=== PATIENT | female | born 1960 | race Native Hawaiian/Other Pacific Islander ===

== ENCOUNTER → 2017-04-04 | Outpatient (CLI) | payer OTHER | LOC: FIMAGING 09:02 | PROVIDERS: ATTEND Internal Medicine | DX: R79.89 Other specified abnormal findings of blood chemistry (principal) ==

== ENCOUNTER 2017-04-11 20:12 | Emergency (ER) | payer OTHER ==
[2017-04-11 20:25] VITALS: RESP 16; TEMP 97.9
--- NOTE | 2017-04-11 20:38 | EDPHY ---
H & P Time Seen by Provider: 04/11/17 20:35 HPI/ROS: CHIEF COMPLAINT: Nausea and vomiting HISTORY OF PRESENT ILLNESS: 56-year-old woman with a previous history of hysterectomy and diabetes presents with nausea and vomiting and diarrhea today. She started having nausea 2 weeks ago at that time she had a head cold and thought it was related to that. She has continued to have intermittent nausea over the last 2 weeks ago on April 04 had ultrasound showed no gallstones but also had labs that showed elevated liver function tests. Today she presents with nausea starting at 9:00 a.m. feeling weak and shaky. She had 3 tootsie rolls but that did not help. She at 5:00 p.m. started having worsening nausea vomiting with epistaxis in 2 episodes of diarrhea and presents to the ER. Not associated with abdominal pain. Symptoms severe. Worse if she tries to eat or drink. REVIEW OF SYSTEMS: Eye: no change in vision ENT: no sore throat Cardiac: no chest pain or syncope Pulmonary: no cough or SOB Abdomen: HPI Musculoskeletal: no back pain Skin: no rash Neuro: no headache Constitutional: no fever : Had dysuria and urinary frequency 2 days ago but it went away with cranberry juice. A comprehensive 10 point review of systems is otherwise negative aside from elements mentioned in the history of present illness. PAST MEDICAL HISTORY: Diabetes, hysterectomy, acid reflux, depression Social history: No alcohol, nonsmoker General Appearance: Alert and conversant, cooperative. Eyes: No scleral icterus. ENT, Mouth: Dry mucous membranes Respiratory: Normal respiratory effort, breath sounds equal, lungs are clear to auscultation. Cardiovascular: Regular rate and rhythm. Gastrointestinal: Abdomen is soft and non tender. Negative for Jernigan sign or right upper quadrant tenderness. Neurological: Alert, normally conversant, normal movement and sensory in extremities. Skin: Warm and dry, no rashes. Musculoskeletal: No peripheral edema. Psychiatric: Not agitated. Emergency Department course/MDM: Plan for EKG and troponin. Zofran 4 mg IV and normal saline 1 L for nausea and vomiting. Chemistries to include liver function tests and lipase as well as venous blood gas. 2158: exam with patient. She feels better, able to tolerate p.o.. Labs reviewed and her LFTs are still slightly elevated but down from previous. The plan is to discharge with oral metoclopramide, referral as an outpatient for possible HIDA scan. Gallbladder dysfunction and gastric paresis both considered as part of differential diagnosis. At this point I think ACS or pancreatitis or surgical abdominal process unlikely. 2226: UA positive for infection, will treat with keflex and send culture. Limited amount of Zofran and no Reglan because of potential for interaction with Wellbutrin. She states she is comfortable going home cough feels a lot better. Smoking Status: Former smoker Constitutional: Initial Vital Signs Temperature (C) 36.6 C 04/11/17 20:21 Heart Rate 91 04/11/17 20:21 Respiratory Rate 16 04/11/17 20:21 Blood Pressure 170/99 H 04/11/17 20:21 O2 Sat (%) 98 04/11/17 20:21 O2 Delivery Mode Room Air Allergies/Adverse Reactions: No Known Allergies Allergy (Verified 04/11/17 20:25) Home Medications: Medication Instructions Recorded GLIPIZIDE [GLIPIZIDE XL] 09/15/13 Meclizine HCl [Meclizine HCl 25 mg 25 mg PO QID PRN #12 tab 09/15/13 (RX,OTC)] Metformin HCl [Metformin 1000 mg] 09/15/13 Cephalexin [Keflex] 500 mg PO QID #28 cap 04/11/17 Victoza 3-Dong 04/11/17 Wellbutrin Xl 04/11/17 Medical Decision Making - Diagnostics EKG Interpretation: 12-lead EKG interpreted by me; official reading is in trace master. My interpretation is sinus rhythm rate 87 with nonspecific anterior lateral T-wave flattening Differential Diagnosis: Differential for nausea considered including but not limited to acute coronary syndrome, gastric paresis, DKA, other metabolic abnormality, UTI. - Data Points Laboratory Results: Laboratory Results 04/11/17 20:56 04/11/17 20:56 04/11/17 04/11/17 04/11/17 21:59 20:56 20:56 WBC 10.76 10^3/uL H 10^3/uL (3.80-9.50) RBC 4.90 10^6/uL 10^6/uL (4.18-5.33) Hgb 16.0 g/dL g/dL (12.6-16.3) POC Hgb Hct 45.1 % % (38.0-47.0) POC Hct MCV 92.0 fL fL (81.5-99.8) MCH 32.7 pg pg (27.9-34.1) MCHC 35.5 g/dL g/dL (32.4-36.7) RDW 12.0 % % (11.5-15.2) Plt Count 242 10^3/uL 10^3/uL (150-400) MPV 10.0 fL fL (8.7-11.7) Neut % (Auto) 70.2 % % (39.3-74.2) Lymph % (Auto) 23.4 % % (15.0-45.0) [place] % (Auto) 5.2 % % (4.5-13.0) Eos % (Auto) 0.6 % % (0.6-7.6) Baso % (Auto) 0.3 % % (0.3-1.7) Nucleat RBC Rel Count 0.0 % % (0.0-0.2) Absolute Neuts (auto) 7.56 10^3/uL H 10^3/uL (1.70-6.50) Absolute Lymphs (auto) 2.52 10^3/uL 10^3/uL (1.00-3.00) Absolute Monos (auto) 0.56 10^3/uL 10^3/uL (0.30-0.80) Absolute Eos (auto) 0.06 10^3/uL 10^3/uL (0.03-0.40) Absolute Basos (auto) 0.03 10^3/uL 10^3/uL (0.02-0.10) Absolute Nucleated RBC 0.00 10^3/uL 10^3/uL (0-0.01) Immature Gran % 0.3 % % (0.0-1.1) Immature Gran # 0.03 10^3/uL 10^3/uL (0.00-0.10) VBG pH POC Sodium Sodium 137 mEq/L mEq/L (134-144) POC Potassium Potassium 4.3 mEq/L mEq/L (3.5-5.2) POC Chloride Chloride 100 mEq/L mEq/L (97-110) Carbon Dioxide 19 mEq/l L mEq/l (22-31) Anion Gap 18 mEq/L H mEq/L (8-16) POC BUN BUN 12 mg/dL mg/dL (7-23) Creatinine 0.6 mg/dL mg/dL (0.6-1.0) POC Creatinine Estimated GFR > 60 Glucose 168 mg/dL H mg/dL (70-100) POC Glucose Calcium 10.4 mg/dL mg/dL (8.5-10.4) Total Bilirubin 0.8 mg/dL mg/dL (0.1-1.4) Conjugated Bilirubin 0.4 mg/dL mg/dL (0.0-0.5) Unconjugated Bilirubin 0.4 mg/dL mg/dL (0.0-1.1) AST 96 IU/L H IU/L (14-46) ALT 186 IU/L H IU/L (9-52) Alkaline Phosphatase 108 IU/L IU/L (38-126) Troponin I < 0.012 ng/mL ng/mL (0.000-0.034) Total Protein 7.7 g/dL g/dL (6.3-8.2) Albumin 4.5 g/dL g/dL (3.5-5.0) Lipase 213 IU/L IU/L (23-300) Urine Color YELLOW Urine Appearance HAZY Urine pH 5.0 (5.0-7.5) Ur Specific [place] 1.010 (1.002-1.030) Urine Protein 2+ H (NEGATIVE) Urine Ketones TRACE H (NEGATIVE) Urine Blood 1+ H (NEGATIVE) Urine Nitrate POSITIVE H (NEGATIVE) Urine Bilirubin NEGATIVE (NEGATIVE) Urine Urobilinogen NEGATIVE EU EU (0.2-1.0) Ur Leukocyte Esterase TRACE H (NEGATIVE) Urine RBC 5-10 /hpf H /hpf (0-3) Urine WBC 15-25 /hpf H /hpf (0-3) Ur Epithelial Cells TRACE /lpf /lpf (NONE-1+) Urine Bacteria 3+ /hpf H /hpf (NONE SEEN) Urine Mucus TRACE /lpf /lpf (NONE-1+) Urine Glucose 1+ H (NEGATIVE) 04/11/17 04/11/17 20:53 20:47 WBC RBC Hgb POC Hgb 16.7 gm/dL H gm/dL (12.6-16.3) Hct POC Hct 49 % H % (38-47) MCV MCH MCHC RDW Plt Count MPV Neut % (Auto) Lymph % (Auto) [place] % (Auto) Eos % (Auto) Baso % (Auto) Nucleat RBC Rel Count Absolute Neuts (auto) Absolute Lymphs (auto) Absolute Monos (auto) Absolute Eos (auto) Absolute Basos (auto) Absolute Nucleated RBC Immature Gran % Immature Gran # VBG pH 7.39 (7.31-7.42) POC Sodium 139 mEq/L mEq/L (134-144) Sodium POC Potassium 3.8 mEq/L mEq/L (3.3-5.0) Potassium POC Chloride 103 mEq/L mEq/L (97-110) Chloride Carbon Dioxide Anion Gap POC BUN 12 mg/dL mg/dL (7-23) BUN Creatinine POC Creatinine 0.5 mg/dL L mg/dL (0.6-1.0) Estimated GFR Glucose POC Glucose 170 mg/dL H mg/dL (70-100) Calcium Total Bilirubin Conjugated Bilirubin Unconjugated Bilirubin AST ALT Alkaline Phosphatase Troponin I Total Protein Albumin Lipase Urine Color Urine Appearance Urine pH Ur Specific [place] Urine Protein Urine Ketones Urine Blood Urine Nitrate Urine Bilirubin Urine Urobilinogen Ur Leukocyte Esterase Urine RBC Urine WBC Ur Epithelial Cells Urine Bacteria Urine Mucus Urine Glucose Medications Given: Discontinued Medications Cephalexin (Keflex 500 Mg Prepack#4) 1 btl TAKEHOME EDNOW ONE PRN Reason: Protocol Stop: 04/11/17 22:28 Last Admin: 04/11/17 22:32 Dose: 1 btl Sodium Chloride (Ns) 1,000 mls @ 0 mls/hr IV EDNOW ONE; Wide Open PRN Reason: Protocol Stop: 04/11/17 20:44 Last Admin: 04/11/17 20:54 Dose: 1,000 mls Ondansetron HCl (Zofran) 4 mg IVP EDNOW ONE Stop: 04/11/17 20:44 Last Admin: 04/11/17 20:54 Dose: 4 mg Ondansetron HCl (Zofran Odt 4 Mg Prepack#2) 1 btl TAKEHOME EDNOW ONE Stop: 04/11/17 22:24 Last Admin: 04/11/17 22:31 Dose: 1 btl Point of Care Test Results: 04/11/17 20:53 POC Sodium 139 POC Potassium 3.8 POC Chloride 103 POC BUN 12 POC Creatinine 0.5 L POC Glucose 170 H Departure - Departure Disposition: Home, Routine, Self-Care Clinical Impression: Elevated liver enzymes Nausea & vomiting Qualifiers: Vomiting type: unspecified Vomiting Intractability: non-intractable Qualified Code(s): R11.2 - Nausea with vomiting, unspecified Urinary tract infection Qualifiers: Urinary tract infection type: acute cystitis Hematuria presence: without hematuria Qualified Code(s): N30.00 - Acute cystitis without hematuria Condition: Good Instructions: Cephalexin (By mouth), Ondansetron (By mouth), Urinary Tract Infection in Women (ED), Acute Nausea and Vomiting (ED) Referrals: Magnolia Moreno MD [Primary Care Provider] - As per Instructions (Follow-up with your doctor next week. Discussed with her possibly having a HIDA scan to evaluate for gallbladder dysfunction.) Prescriptions: Cephalexin [Keflex] 500 mg PO QID #28 cap
[2017-04-11] MEDS ORDERED: ONDANSETRON 4 MG/2 ML VIAL IVP ONE (20:43)
[2017-04-11] MEDS ORDERED: NS 1,000 ML IV ONE (20:43)
[2017-04-11 21:04] LABS: PLATELET COUNT 242 10^3/uL (150-400)
--- NOTE | 2017-04-11 21:11 | CPEKG ---
Heart Rate: 87 RR Interval: 690 P-R Interval: 160 QRSD Interval: 94 QT Interval: 368 QTC Interval: 443 P Dalton: 44 QRS Dalton: 24 T Wave Dalton: 60 EKG Severity - BORDERLINE ECG - EKG Impression: SINUS RHYTHM EKG Impression: BORDERLINE R WAVE PROGRESSION, ANTERIOR LEADS EKG Impression: BORDERLINE T ABNORMALITIES, ANT-LAT LEADS Electronically Signed By: Júnior Bear 11-Apr-2017 21:20:52
[2017-04-11] MEDS ORDERED: ONDANSETRON 4MG PREPACK#2 BTL TAKEHOME ONE ×2 (22:22→22:23)
[2017-04-11] MEDS ORDERED: CEPHALEXIN 500MG PREPACK#4 BTL TAKEHOME ONE (22:27)
[2017-04-11 22:45] VITALS: BP 156/89; PULSE 80; O2SAT 94
== END 2017-04-11 22:45 | disposition home or self-care (01) ==
DX: N30.00 Acute cystitis without hematuria (principal); B96.20 Unspecified Escherichia coli [E. coli] as the cause of diseases classified elsewhere; R79.89 Other specified abnormal findings of blood chemistry; E11.9 Type 2 diabetes mellitus without complications; Z87.891 Personal history of nicotine dependence
CPT/HCPCS: 82947-QW; 96374; J2405